=== PATIENT | male | born 1990 | race Caucasian/White ===

== ENCOUNTER 2017-10-06 16:37 | Emergency (ER) | payer BC ==
[~2017-10-06] VITALS: Ht 188 cm; Wt 104.5 kg
[2017-10-06] MEDS ORDERED: KETOROLAC TROMETHAMINE 60 MG/2 ML VIAL IM ONE (19:30)
[2017-10-06] MEDS ORDERED: METHOCARBAMOL 500 MG TABLET PO ONE (19:30)
[2017-10-06 20:25] VITALS: BP 122/71
== END 2017-10-06 20:28 | disposition home or self-care (01) ==
LOC: EDBD 16:40 → EMS 16:40
DX: S16.1XXA Strain of muscle, fascia and tendon at neck level, initial encounter (principal); S39.012A Strain of muscle, fascia and tendon of lower back, initial encounter; V89.2XXA Person injured in unspecified motor-vehicle accident, traffic, initial encounter; Y93.89 Activity, other specified; Y92.89 Other specified places as the place of occurrence of the external cause; Y99.8 Other external cause status
CPT/HCPCS: 96372; 99283; J1885